=== PATIENT | male | born 1930 | race Caucasian/White ===

== ENCOUNTER → 2016-05-02 13:31 | Outpatient (CLI) | payer MEDICARE, OTHER ==
[2015-12-27 05:51] VITALS: BMI 25.3
[~2016-05-02 13:31] MED LIST: BAYER CHEWABLE81 MG PO; COZAAR100 MG PO; HYDROCODONE-APA1 TAB PO; NORVASC2.5 MG PO; PACERONE200 MG PO; PERCOCET 10/3251 TA1 PO; PRADAXA150 MG PO; PRAVACHOL40 MG PO; SINEQUAN25 MG PO; SYNTHROID88 MCG PO; TENORMIN25 MG PO; VIAGRA100 MG PO; ZANTAC150 MG PO
== END | disposition home or self-care (01) ==
LOC: D.RT 04-25 14:00
DX: R06.02 Shortness of breath (principal)

== ENCOUNTER 2016-08-18 13:57 | Emergency (ER) | payer MEDICARE, OTHER ==
[2015-12-27 05:51] VITALS: BMI 25.3
== END 2016-08-18 15:00 | disposition left against medical advice (07) ==
LOC: D.ER 13:57
DX: S29.9XXA Unspecified injury of thorax, initial encounter (principal); X58.XXXA Exposure to other specified factors, initial encounter; Y93.89 Activity, other specified; Y92.89 Other specified places as the place of occurrence of the external cause

== ENCOUNTER 2016-09-15 13:32 | Emergency (ER) | payer MEDICARE, OTHER ==
[2015-12-27 05:51] VITALS: BMI 25.3
[2016-09-15 15:04] LABS: APPEARANCE CLEAR (CLEAR); BILIRUBIN NEGATIVE (NEGATIVE); COLOR YELLOW (YELLOW); GLUCOSE NEGATIVE (NEGATIVE); KETONE NEGATIVE (NEGATIVE); LEUKOCYTE ESTERASE NEGATIVE (NEGATIVE); NITRITE NEGATIVE (NEGATIVE); PROTEIN NEGATIVE (NEGATIVE); UROBILINOGEN NORMAL (NORMAL)
== END 2016-09-15 16:28 | disposition home or self-care (01) ==
LOC: D.ER 13:32
PROVIDERS: Emergency Medicine
DX: M54.30 Sciatica, unspecified side (principal); I25.10 Atherosclerotic heart disease of native coronary artery without angina pectoris; I10 Essential (primary) hypertension; E03.9 Hypothyroidism, unspecified

== ENCOUNTER 2016-09-29 08:00 | Outpatient (CLI) | payer MEDICARE, OTHER ==
[2015-12-27 05:51] VITALS: BMI 25.3
== END 2016-09-29 23:59 | disposition home or self-care (01) ==
LOC: D.MRI 08:00
DX: M54.16 Radiculopathy, lumbar region (principal)

== ENCOUNTER 2016-10-20 13:41 | Day surgery (SDC) | payer MEDICARE, OTHER ==
[2016-10-16 16:58] LABS: BASOPHILS 0.3 % (0-2); EOSINOPHILS 2.9 % (0-7); HEMATOCRIT 40.4 % (42.0-54.0); HEMOGLOBIN 13.7 g/dL (13.5-17.5); IMMATURE GRANULOCYTES 0.5 % (0-5); LYMPHOCYTES 23.6 % (15-50); MCH 32.9 pg (26.0-34.0); MCHC 33.9 g/dL (31.0-37.0); MCV 96.9 fL (80.0-100.0); MEAN PLATELET VOLUME 10.5 fL (7.4-10.4); MONOCYTES 10.3 % (2-11); NEUTROPHILS 62.4 % (40-80); RBC 4.17 10x6/uL (4.20-6.10); RDW 12.4 % (11.5-14.5); WBC 5.9 10x3/uL (4.8-10.8)
[2016-10-16 16:59] LABS: PLATELET COUNT 195 10x3/uL (130-400)
[2016-10-16 17:07] LABS: APPEARANCE CLEAR (CLEAR); BILIRUBIN NEGATIVE (NEGATIVE); COLOR YELLOW (YELLOW); GLUCOSE NEGATIVE (NEGATIVE); KETONE NEGATIVE (NEGATIVE); LEUKOCYTE ESTERASE NEGATIVE (NEGATIVE); NITRITE NEGATIVE (NEGATIVE); PROTEIN NEGATIVE (NEGATIVE); UROBILINOGEN NORMAL (NORMAL)
[2016-10-16 17:13] LABS: ANION GAP 11.9 mmol/L (8-16); CALCIUM 9.4 mg/dL (8.5-10.1); CARBON DIOXIDE 30.6 mmol/L (21.0-32.0); CREATININE - SERUM 1.1 mg/dL (0.6-1.3); POTASSIUM - SERUM 4.5 mmol/L (3.5-5.1)
[~2016-10-20] VITALS: Ht 185.4 cm; Wt 88.0 kg
[2016-10-20 06:46] VITALS: BP 182/74; Ht 185.4 cm; Wt 88.0 kg
--- NOTE | 2016-10-20 11:48 | NUR ---
1130 SERVED FULL LIQUID DIET. Jo WASHBURN R.N.
[~2016-10-20 13:41] MED LIST changes: +SYNTHROID100 MCG PO; -SYNTHROID88 MCG PO
--- NOTE | 2016-11-18 10:24 | OP ---
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 PROCEDURE: L3-L4 right laminotomy and foraminotomy with discectomy. SURGEON: Cynthia Heath MD ESTIMATED BLOOD LOSS: 50 cc. SUMMARY: The patient was taken to the operating room and after an adequate level of general anesthetic, was prepped and draped in the usual aseptic manner on a Bernard frame. An incision was made to the right of the spinous processes of L3 and L4 using a C-arm fluoroscope to position the incision. Dissection was carried out with Metzenbaum scissors down to the interlaminar space at L3-L4 and then a matrix operating channel was introduced using the C-arm fluoroscope to guide this placement. A 5-cm channel, 1.5 cm in diameter was used. Following this, the operating channel was attached to the flexible arm and the medial aspect of the facet joint at L3-L4 on the right was removed with a Midas-Bruno drill. The overlying lamina of L3 and L4 was partially removed on the right as well. The ligamentum flavum was split and removed. Dissection was carried out underneath the exiting nerve root and the herniated disc fragment was identified. An incision was made in the posterior longitudinal ligament and disc material was removed piecemeal thoroughly decompressing the spinal canal. A thorough inspection was then carried out with a ball-tipped blunt hook and no further disc material was discovered. Following this, the wound was irrigated with an antibiotic solution and the closure carried out with 2-0 Dexon on the fascia, 3-0 Dexon on the subcutaneous tissue and a subcuticular skin closure with 4-0 Vicryl. The skin was then covered with Dermabond glue to seal it. The patient tolerated the procedure well, was taken to recovery in stable condition. TRANSINT:[id number] Voice Confirmation ID: [id number] DOCUMENT ID: [id number] CYNTHIA HEATH MD at 1024 CC: [id number] DICTATION DATE: 11/10/16 155 ADULT NEUROLOGIST: 11/10/16 2209 [facility] 10/20/16 [address] [id number] [place] [address]
== END 2016-10-20 14:40 | disposition home or self-care (01) ==
LOC: D.OPS 13:41
PROVIDERS: Neurological Surgery
DX: M47.26 Other spondylosis with radiculopathy, lumbar region (principal); I25.10 Atherosclerotic heart disease of native coronary artery without angina pectoris; Z95.1 Presence of aortocoronary bypass graft; K21.9 Gastro-esophageal reflux disease without esophagitis; Z01.812 Encounter for preprocedural laboratory examination

== ENCOUNTER → 2016-10-21 | Emergency (ER) | payer MEDICARE, OTHER ==
[2016-10-20 06:46] VITALS: BMI 25.6
== END ==
LOC: D.ER 02:54
DX: R33.9 Retention of urine, unspecified (principal)

== ENCOUNTER → 2017-03-17 12:39 | Outpatient (CLI) | payer MEDICARE, OTHER ==
[2016-10-20 06:46] VITALS: BMI 25.6
== END | disposition home or self-care (01) ==
LOC: D.RT 03-11 10:00
DX: R06.02 Shortness of breath (principal)

== ENCOUNTER 2017-08-07 01:43 | Emergency (ER) | payer MEDICARE, OTHER ==
[2016-10-20 06:46] VITALS: BMI 25.6
[2017-08-07 02:23] LABS: BASOPHILS 0.2 % (0-2); EOSINOPHILS 2.3 % (0-7); HEMATOCRIT 37.9 % (42.0-54.0); HEMOGLOBIN 12.7 g/dL (13.5-17.5); IMMATURE GRANULOCYTES 0.2 % (0-5); LYMPHOCYTES 27.6 % (15-50); MCHC 33.5 g/dL (31.0-37.0); MCV 98.4 fL (80.0-100.0); MEAN PLATELET VOLUME 10.9 fL (7.4-10.4); MONOCYTES 9.8 % (2-11); NEUTROPHILS 59.9 % (40-80); PLATELET COUNT 151 10x3/uL (130-400); RBC 3.85 10x6/uL (4.20-6.10); RDW 12.1 % (11.5-14.5); WBC 5.7 10x3/uL (4.8-10.8)
[2017-08-07 02:24] LABS: APPEARANCE CLEAR (CLEAR); BILIRUBIN NEGATIVE (NEGATIVE); COLOR YELLOW (YELLOW); GLUCOSE NEGATIVE (NEGATIVE); KETONE NEGATIVE (NEGATIVE); NITRITE NEGATIVE (NEGATIVE); PROTEIN NEGATIVE (NEGATIVE); UROBILINOGEN NORMAL (NORMAL)
[2017-08-07 02:40] LABS: ALBUMIN 3.8 g/dL (3.4-5.0); BILIRUBIN - TOTAL 0.44 mg/dL (0.2-1.3); CREATININE - SERUM 1.4 mg/dL (0.6-1.3)
[2017-08-07 02:46] LABS: PROTEIN - SERUM 6.1 g/dL (6.4-8.2)
[2017-08-07 02:58] LABS: ANION GAP 12.1 mmol/L (8-16); CALCIUM 8.9 mg/dL (8.5-10.1); CARBON DIOXIDE 28.9 mmol/L (21.0-32.0)
== END 2017-08-07 03:12 | disposition home or self-care (01) ==
LOC: D.ER 01:43
PROVIDERS: Emergency Medicine
DX: R60.0 Localized edema (principal); N28.9 Disorder of kidney and ureter, unspecified; I25.10 Atherosclerotic heart disease of native coronary artery without angina pectoris; I10 Essential (primary) hypertension; R00.1 Bradycardia, unspecified; I44.0 Atrioventricular block, first degree; E03.9 Hypothyroidism, unspecified

== ENCOUNTER → 2018-01-25 13:19 | Outpatient (CLI) | payer MEDICARE, OTHER ==
[2016-10-20 06:46] VITALS: BMI 25.6
== END | disposition home or self-care (01) ==
LOC: D.RAD 13:19
DX: R05 Cough (principal)

== ENCOUNTER → 2018-02-17 13:04 | Outpatient (CLI) | payer MEDICARE, OTHER ==
[2016-10-20 06:46] VITALS: BMI 25.6
== END | disposition home or self-care (01) ==
LOC: D.RT 13:00
DX: R06.02 Shortness of breath (principal)

== ENCOUNTER 2018-07-15 11:41 | Outpatient (CLI) | payer MEDICARE, OTHER ==
[~2018-07-15] VITALS: Ht 185.4 cm; Wt 88.6 kg
--- NOTE | ~2018-07-15 | HEMODYNAMI ---
PATIENT:ROBERTO ZAVALA MEDICAL RECORD: [id number] : 32 LOCATION:DNANCY ADMISSION DATE: 07/15/18 Generatedon:07/15/201815:12 Patient name: ROBERTO ZAVALA Patient #: [id number] SSN: : 1930 Date of study: 07/15/2018 Page: Of Hemodynamic Procedure Report Patient Data Patient Demographics Procedure consent was obtained First Name: ROBERTO Gender: Male Last Name: LUCAS : 1930 [facility] Initial: J Age: 87 year(s) Patient #: [id number] Race: Unknown Additional ID: [id number] Contact details Address: [place] [address] State: [place] City: [place] Zip code: [address] Past Medical History Allergies Allergen Reaction Date Comments Reported Other allergy 07/15/2018 Compazine Admission Admission Data Admission Date: 07/15/2018 Admission Time: 11:41 Lab Results Lab Result Date: 07/15/2018 Lab Result Time: 12:26 Biochemistry Name Units Result Min Max BUN mg/dl 36 --(----)-* 7 18 Creatinine mg/dl 1.3 --(---*)-- 0.6 1.3 CBC Name Units Result Min Max Hematocrit % 36.2 *-(----)-- 42 54 Hemoglobin g/dl 12.3 *-(----)-- 13.5 17.5 Procedure Procedure Types Cath Procedure Diagnostic Procedure PPM/ICD PPM Dual Implant Sedation Charges Moderate Sedation up to 15 minutes Procedure Description Procedure Date Procedure Date: 07/15/2018 Procedure Start Time: 14:43 Procedure End Time: 15:10 Procedure Staff Name Function Adriel Dai MD Performing Physician Balaji Gallardo MD Assisting physician Fitz Cook RT Monitor Clement Nance RN Nurse Gretta Martinez RT Scrub Melia Hernandez RT Monitor Procedure Data Cath Procedure Fluoroscopy Diagnostic fluoroscopy Total fluoroscopy Time: 2.5 time: 2.5 min min Diagnostic fluoroscopy Total fluoroscopy dose: dose: 68.69 mGy 68.69 mGy Estimated blood loss: 10 ml Procedure Complications No complications Procedure Medications Medication Administration Route Dosage Oxygen etCO2 Nasal cannula 2 l/min Lidocaine 2% added to field 20 Ancef (1Gm/50ml NS) I.V.P.B 1 g Ancef Irrigation Topical 1 g (1gm/500ml NS) Fentanyl I.V. 50 mcg Versed I.V. 1 mg Versed I.V. 1 mg Fentanyl I.V. 50 mcg Versed I.V. 1 mg Fentanyl I.V. 25 mcg Versed I.V. 1 mg Hemodynamics Rest HGB: 12.3 (g/dl) Heart Rate: 72 (bpm) Snapshots Pre Cath Intra NCS Post Cath Vital Signs Time Heart Resp SPO2 etCO2 NIBP (mmHg) Rhythm Pain Sedation Rate (ipm) (%) (mmHg) Status Level (bpm) 14:17:33 80 18 96 19.5 169/85(148) NSR 0 (11) 10(A) , No pain 14:22:14 68 19 94 35.3 140/94(109) NSR 0 (11) 10(A) , No pain 14:26:36 71 13 96 34.6 152/77(122) NSR 0 (11) 10(A) , No pain 14:30:58 57 17 97 36.1 144/79(122) NSR 0 (11) 10(A) , No pain 14:35:20 64 16 96 37.6 145/80(123) NSR 0 (11) 10(A) , No pain 14:39:47 66 12 96 34.6 137/69(98) NSR 0 (11) 10(A) , No pain 14:44:09 116 17 93 29.3 144/74(105) NSR 0 (11) 9(A) , No pain 14:48:35 66 20 95 0 143/69(117) NSR 0 (11) 9(A) , No pain 14:52:57 66 22 94 0.7 138/73(102) NSR 0 (11) 9(A) , No pain 14:57:15 60 23 96 28.6 136/80(121) Paced 0 (11) 9(A) , No pain 15:01:38 65 21 98 32.3 147/78(121) Paced 0 (11) 10(A) , No pain 15:05:58 62 16 98 30.8 143/76(117) Paced 0 (11) 10(A) , No pain 15:10:20 74 14 98 27 152/73(112) Paced 0 (11) 10(A) , No pain Medications Time Medication Route Dose Verified Delivered Reason Notes Effectiv eness by by 14:14:27 Ancef I.V.P.B 1 g Adriel Buffie used for (1Gm/50ml Suhas Nance polisher and sander NS) 14:26:11 Oxygen etCO2 2 Adriel Diorie used for Nasal l/min Suhas Nance polisher and sander cannula 14:26:18 Lidocaine added 20ml Adriel Carpio for local 2% to vial St Kiran Gallardo MD anesthetic field 14:26:34 Ancef Topical 1 g Adriel Diorie used for Irrigation Suhas Nance polisher and sander (1gm/500ml NS) 14:40:40 Fentanyl I.V. 50 Adriel Diorie for mcg Suhas Nance RN sedation 14:40:48 Versed I.V. 1 mg [facility] for [facility] sedation 14:44:46 Versed I.V. 1 mg [facility]iorie for [facility] RN sedation 14:44:51 Fentanyl I.V. 50 Adriel Diorie for [facility] Suhas Nance RN sedation 14:50:11 Versed I.V. 1 mg Adriel Diorie for Suhas Nance RN sedation 14:50:15 Fentanyl I.V. 25 Adriel Buffie for [facility] Suhas Nance RN sedation 14:54:18 Versed I.V. 1 mg Adriel Diorie for [facility] RN sedation Procedure Log Time Note 13:58:47 Time tracking: Regular hours (M-F 7:00 - 5:00) 13:58:50 Plan of Care:Hemodynamics will remain stable., Cardiac rhythm will remain stable., Comfort level will be maintained., Respiratory function will remain adequate., Patient/ family verbilizes understanding of procedure., Procedure tolerated without complication., Recovers from procedure without complications.. 13:58:54 Clement Nance RN sent for patient. Start room use. 14:08:47 Patient received from Pre/Post Procedure Room to [facility] 3 Alert and oriented. Tansferred to table in Supine position. 14:08:48 Warm blankets applied, and deepika hugger turned on for patient comfort. 14:08:49 Correct patient and procedure confirmed by team. 14:08:50 Signed procedure consent form obtained from patient. 14:08:51 ECG and BP/O2 sat monitors applied to patient. 14:08:55 Pre-procedure instructions explained to patient. 14:08:55 Pre-op teaching completed and patient verbalized understanding. 14:09:08 H&P Date Dictated: 07/06/2018 Within 30 days and on chart., H&P Addendum completed by physician on day of procedure. (MUST COMPLETE FOR ALL OUTPATIENTS). 14:09:11 Family in waiting room. 14:09:13 Patient NPO since Breakfast. 14:09:27 Patient allergic to Other allergyCompazine 14:09:28 Is the patient allergic to Iodine/contrast media? No. 14:09:30 Is patient on blood thinner?Yes 14:14:27 Ancef (1Gm/50ml NS) 1 g I.V.P.B was administered by Clement Nance RN; used for procedure; 14:16:11 Vital chart was started 14:21:05 Baseline sample Acquired. 14:21:12 Rhythm: atrial fibrillation 14:21:14 Full Disclosure recording started 14:21:18 Patient diabetic? No. 14:21:21 Previous problem with sedation/anesthesia? No ? 14:21:21 Snore? No 14:21:22 Sleep apnea? No 14:21:23 Deviated septum? No 14:21:23 Opens mouth fully? Yes 14:21:24 Sticks out tongue? Yes 14:21:25 Airway obstruction? No ? 14:21:26 Dentures? No ? 14:21:29 Patient pain scale 0/10 ?. 14:21:33 IV patent on arrival in left forearm with 0.9% NaCl at [facility]. 14:23:00 Lab Result : BUN 36 mg/dl 14:23:00 Lab Result : Creatinine 1.3 mg/dl 14:23:00 Lab Result : Hematocrit 36.2 % 14:23:00 Lab Result : Hemoglobin 12.3 g/dl 14:23:02 Lab results completed and on chart. 14:23:11 Left chest area was prepped with chlora-prep and draped in sterile fashion 14:23:12 Alarms reviewed by Bob Sapp 14:23:13 Sharps counted by scrub and verified by R.N. 14:23:22 Medtronic energy conservation representative winnie apple present for procedure. 14:23:33 Pre sharps counted by scrub and verified by RN: Sutures: 7; Sponges: 5; Stick needles: 2; Skin needles: 2; Blade: 1; Cautery: 1 14:23:35 Grounding pad site Left thigh. 14:23:36 Grounding pad site free from injury. 14:23:49 Use device set MARSHALL PPM 14:24:38 Medtronic Advisa MRI PPM Dual Generator [id number] opened to sterile field. 14:24:51 Medtronic 4574-53 PPM Lead opened to sterile field. 14:25:01 Medtronic 4074-58 PPM Lead opened to sterile field. 14:25:04 Immobilizer Large opened to sterile field. 14:25:06 Cautery Pushbutton Pencil opened to sterile field. 14:25:11 2-0 Ticron Multipack ([id number]) opened to sterile field. 14:25:11 3-0 Vicryl Single Pack [id number] opened to sterile field. 14:25:13 5-0 Monocryl PS2 [id number] opened to sterile field. 14:25:16 Mepilex Dressing ([id number]) opened to sterile field. 14:25:18 Cautery Tip Skull Chopper opened to sterile field. 14:26:11 Oxygen 2 l/min etCO2 Nasal cannula was administered by Clement Nance RN; used for procedure; 14:26:18 Lidocaine 2% 20ml vial added to field was administered by Balaji Gallardo MD; for local anesthetic; 14:26:34 Ancef Irrigation (1gm/500ml NS) 1 g Topical was administered by Clement Nance RN; used for procedure; 14:38:18 Physician arrived 14:38:19 --------ALL STOP TIME OUT------ 14:38:21 Final Timeout: patient, procedure, and site verified with staff and physician. All members of the team are in agreement. 14:38:27 Left chest site verified by team. 14:38:44 Fire Safety Assessment: A--An alcohol-based skin anteseptic being used preoperatively., B--The operative or invasive procedure is being performed above the xiphoid process or in the oropharynx., C--Open oxygen or nitrous oxide is being used. 14:38:47 Physical assessment completed. ASA score P 2 - A patient with mild systemic disease as per Adriel Dai MD. 14:38:50 Sedation plan: IV Moderate Sedation Medication:Versed, Fentanyl 14:40:40 Fentanyl 50 mcg I.V. was administered by Clement Nance RN; for sedation; 14:40:48 Versed 1 mg I.V. was administered by Clement aNnce RN; for sedation; 14:41:47 Procedure started. 14:43:44 Lidocaine 2% was administered to left subclavicular area by Balaji Gallardo MD . 14:43:51 Incision made to left subclavicular area. 14:43:53 Generator pocket made/opened. 14:44:46 Versed 1 mg I.V. was administered by Clement Nance RN; for sedation; 14:44:51 Fentanyl 50 mcg I.V. was administered by Clement Nance RN; for sedation; 14:48:55 Left subclavian vein accessed with 7Fr Peel Away Sheath. 14:49:16 Left subclavian vein accessed with 7Fr Peel Away Sheath. 14:49:18 Ventricular lead inserted and advanced. 14:49:19 Atrial lead inserted and advanced. 14:50:11 Versed 1 mg I.V. was administered by Clement Nance RN; for sedation; 14:50:15 Fentanyl 25 mcg I.V. was administered by Clement Nance RN; for sedation; 14:54:18 Versed 1 mg I.V. was administered by Clement Nance RN; for sedation; 14:55:18 Ventricular lead positioned. 14:55:26 Ventricular lead tested. 14:56:08 Peel-a-way sheath was split and removed. 14:56:51 Atrial lead positioned. 14:56:53 Atrial lead tested. 14:56:54 Peel-a-way sheath was split and removed. 14:56:59 Ventricular lead attachment was completed with 2-0 ticron. 14:57:06 Generator was sutured in place with 2-0 vicryl. 14:57:07 Ventricular lead attachment was completed with 2-0 ticron. 14:58:00 Device pocket was irrigated with Ancef. 14:58:37 Subcutaneous closure was completed with 3-0 vicryl. 14:59:46 Parameters-- Generator: Mode: DDDR. Lower Rate: 60bpm. Upper Rate: 120bpm. 15:00:10 Parameters--Ventricular P/R Wave: 6.9mV. Current: 0.4mA; Threshold: 0.3V; Impedence: 960OHMS. 15:00:28 Parameters--Atrial P/R Wave: 0.1mV. Current: AFmA; Threshold: AFV; Impedence: 461OHMS. 15:00:34 Skin closure was completed with 5-0 monocryl. 15:04:47 Lt Chest incision was dressed with Mepilex dressing. 15:08:52 Procedure ended.(Physican Out) 15:09:01 Fluoroscopy time 02.50 minutes. 15:09:16 Fluoroscopy dose: 68.69 mGy 15:09:16 Flurop Dose total: 68.69 15:09:31 Post procedure rhythm: paced 15:09:34 Estimated blood loss: 10 ml 15:09:35 Post procedure instruction explained to patient.Patient verbalizes understanding. 15:09:35 Patient needs reinforcement of post procedure teaching. 15:10:08 Procedure type changed to Cath procedure, Diagnostic procedure, PPM/ICD, PPM Dual Implant, Sedation Charges, Moderate Sedation up to 15 minutes 15:10:32 Procedure and supply charges have been captured, reviewed, submitted and are correct. 15:10:35 Procedure Complication : No complications 15:10:38 Vital chart was stopped 15:10:38 See physician's report for complete and final results. 15:10:40 Report given to PCU. 15:10:43 Patient transfered to PCU with Bed. 15:10:44 Procedure ended. 15:10:44 Full Disclosure recording stopped 15:10:49 End room use (Document Last) Device Usage Item Name Manufacture Quantity Catalog Hospital Part Current Minimal Lot# / Number Charge Number Stock Stock Serial# Code Medtronic Medtronic 1 [id number] [id number] 5 [id number] Advisa MRI 2019-11-15 PPM Dual Generator [id number] Medtronic Medtronic 1 4574-53 703535 170185 [id number] 5 [id number] 45753 PPM 2019-06-26 Lead Medtronic Medtronic 1 4074-58 376265 108954 459242 5 [id number] 4074-58 PPM 2019-12-16 Lead Immobilizer Cardinal 1 [id number] 522389 249179 710412 5 Large Health Cautery Microtek 1 [id number] 215696 30344 224351 5 [employer] Pencil 2-0 Ticron Ethicon 6 [id number] 806498 57883 248791 5 Multipack ([id number]) 3-0 Vicryl Ethicon 1 [id number] 448340 446488 917522 5 Single Pack [id number] 5-0 Monocryl Ethicon 1 Y495G 523817 865504 738523 5 PS2 Y495G Mepilex Cardinal 1 044090 511826 157504 387162 5 Dressing Health (678398) Cautery Tip Microtek 1 [id number] 738891 566211 534008 5 [employer] Signature Audit [place] Stage Time Signature Unsigned Intra-Procedure 07/15/2018 Melia Hernandez 3:12:10 PM RT(R) Signatures Monitor : Fitz Cook RT Signature : Date : Time : Monitor : Melia Hernandez Signature : RT Date : Time : [place] [id number] [facility] [place] [address]
[2018-07-15] MEDS ORDERED: VIAGRA100 MG PO (12:05)
[2018-07-15] MEDS ORDERED: SINEQUAN25 MG PO (12:06)
[2018-07-15] MEDS ORDERED: SYNTHROID112 MCG PO (12:07)
[2018-07-15 12:12] VITALS: BP 151/71; BMI 25.7
[2018-07-15 12:29] LABS: HEMATOCRIT 36.2 % (42.0-54.0); HEMOGLOBIN 12.3 g/dL (13.5-17.5); MCH 32.4 pg (26.0-34.0); MCV 95.3 fL (80.0-100.0); MEAN PLATELET VOLUME 11.2 fL (7.4-10.4); RBC 3.8 10x6/uL (4.20-6.10); WBC 5.4 10x3/uL (4.8-10.8)
[2018-07-15 12:49] LABS: ANION GAP 12.7 mmol/L (8-16); CALCIUM 9.2 mg/dL (8.5-10.1); CARBON DIOXIDE 26.5 mmol/L (21.0-32.0); CREATININE - SERUM 1.3 mg/dL (0.6-1.3); POTASSIUM - SERUM 4.2 mmol/L (3.5-5.1)
[2018-07-15 13:01] LABS: APTT 28.8 SECONDS (22.8-39.4); INR 1.04 (0.85-1.17); PROTIME 13.5 SECONDS (11.6-15.0)
--- NOTE | 2018-07-15 15:31 | NUR ---
1530-RECEIVED VIA BED TO ROOM POST PACEMAKER PLACEMENT TO LEFT UPPER CHEST WALL. SLING IS IN USE TO LEFT ARM, RADIAL PULSE PRESENT. DRESSING SEEN OF BROWN MEPILEX TO LEFT CHEST WALL. IV IS SEEN LEFT FOREARM. WILL ADMIT. PATIENT DENIES PAIN AT THIS TIME.
[2018-07-15 15:38] VITALS: BP 76/48; Ht 185.4 cm; Wt 88.6 kg
[2018-07-15 16:12] VITALS: BP 78/51
--- NOTE | 2018-07-15 16:35 | NUR ---
PATIENT IS TRYING TO STAND UP USING HIS LEFT ARM FOR SUPPORT TO VOID IN URINAL. I INSTRUCTED HIM NUMEROUS TIMES NOT TO USE HIS LEFT ARM R/T WIRES THAT MIGHT GET MOVED.
--- NOTE | 2018-07-15 17:46 | NUR ---
ASSSITED PATIENT TO RESTROOM TO VOIDS. VOIDS IN TOLIET. ASSSITED BACK TO BED AND ASKED AGAIN TO PLEASE NOT USE IS LEFT ARM, SLING IN USE.
--- NOTE | 2018-07-15 19:57 | NUR ---
PT SITTING UP IN BED ALERT AND ORIENTED. RR EVEN AND UNLABORED. GIRLFRIEND AT BEDSIDE. NO S/S OF DISTRESS. PT WEARING ARM SLING. BED LOW CALL LIGHT WITHIN REACH. WILL CONTINUE TO MONITOR.
[2018-07-15 20:00] VITALS: BP 127/67
--- NOTE | 2018-07-15 20:17 | NUR ---
ASSISTED PT UP INTO BATHEROOM TO VOID. PT BACK IN BED. BED LOW CALL LIGHT WITHIN REACH. WILL CONTINUE TO MONITOR.
--- NOTE | 2018-07-15 22:43 | NUR ---
ASSISTED PT TO BATHROOM. PT TOLERATED WELL. BED LOW CALL LIGHT WITHIN REACH. WILL CONTINUE TO MONITOR.
--- NOTE | 2018-07-16 02:05 | NUR ---
PT RESTING IN BED WIRH EYES CLOSED. RR EVEN AND UNLABORED. PT RUNNING 73 PAACED ON TELEMETRY PER MARKET RESEARCH INTERVIEWER. LEFT ARM SLING IN PLACE. NO S/S OF DISTRESS. WILL CONTINUE TO MONITOR.
--- NOTE | 2018-07-16 03:15 | NUR ---
I have reviewed this patient and I concur with the Shift Assessment completed by the Licensed Practical Nurse today this shift.
[2018-07-16 04:00] VITALS: BP 106/50
--- NOTE | 2018-07-16 04:24 | NUR ---
PT STANDING AT SIDE OF BED USING URINAL TO VOID. PT COMPLAINS OF 5/10 PAIN IN LEFT SHOULDER. WILL CONTINUE TO MONITOR.
--- NOTE | 2018-07-16 07:41 | NUR ---
REPORT RECEIVED. WILL CONTINUE WITH POC. PT CURRENTLY LYING SEMI FOWLERS. CALL LIGHT W/I REACH. PT IS RESTING AT THE MOMENT. NO S/S OF DISTRESS NOTED. RIGHT ARM IS IN A SLING FOR POST PACEMAKER PLACEMAKER. RR EVEN AND UNLABORED ON RA. NS INFUSING @50ML/HR VIA L.FOR PIV . WILL CTM.
[2018-07-16 08:25] VITALS: BP 150/56
--- NOTE | 2018-07-16 10:00 | NUR ---
I have reviewed this patient and I concur with the Shift Assessment completed by the Licensed Practical Nurse today this shift.
--- NOTE | 2018-07-16 10:56 | NUR ---
PT DISCHARGED HOME VIA WHEELCHAIR WITH FAMILY. PACEMAKER INSTRUCTIONS AND PACKET GIVEN. PIV REMOVED WITH CATHETER TIP INTACT. TELEMETRY REMOVED AND RETURNED. PT SIGNED PROPER DISCHARGE INSTRUCTION AND REMOVED ALL VALUABLES FROM THE ROOM.
--- NOTE | 2018-07-20 08:16 | OP ---
PATIENT NAME: ROBERTO ZAVALA MEDICAL RECORD: [id number] :31 LOCATION:D.CAT ADMISSION DATE: SURGEON: LEEANN OLIVARES MD DATE OF OPERATION: 07/15/2018 PREOPERATIVE DIAGNOSES: 1. Atrial fibrillation. 2. Coronary artery disease. POSTOPERATIVE DIAGNOSES: 1. Atrial fibrillation. 2. Coronary artery disease. PROCEDURE IN DETAIL: 1. Left subclavian vein dual lead pacemaker placement. 2. Fluoroscopic interpretation. SURGEON: Leeann Olivares MD CO-SURGEON: Adriel Otoole MD REPORT OF OPERATION: The patient's left chest was prepped and draped in sterile fashion. A 20 mL of 1% lidocaine with epinephrine was infused into the surrounding tissues. A transverse incision was made overlying the left superior lateral chest and a subcutaneous pouch was made over the pectoral fascia. The needles were used times 2 to cannulate the left subclavian vein and guidewires were advanced with ease. Fluoro was used to note that the wires were in good position in the venous system. The dilator trocar device was replaced over the wires and the wires and dilators were removed. The leads were advanced through the trocars and resting in good position in the vena cava. At this point, Dr. Otoole positioned the leads appropriately in the atrium and ventricle. Once the leads were noted to be functioning appropriately, then the trocars were removed. The leads were sutured into place with 0 Ti-Cron. We then affixed the leads to the pacemaker and placed the pacemaker and leads in the subcutaneous pouch. The pacemaker was sutured to the pectoral fascia using a single interrupted 0 Ti-Cron. The wound was irrigated out with antibiotic solution. We then reapproximated the subcutaneous tissues with interrupted 3-0 Vicryls and the skin was closed with running subcutaneous 5-0 Monocryl. COMPLICATIONS: None. CONDITION: Stable. ANESTHESIA: Local MAC. BLOOD LOSS: Minimal. TRANSINT:[id number] Voice Confirmation ID: [id number] DOCUMENT ID: [id number] OPERATIVE REPORT [id number] ROBERTO ZAVALA LEEANN OLIVARES MD at 0816 CC: [id number] DICTATION DATE: 07/15/18 1509 SCRUM PRODUCT OWNER: 07/15/18 1603 DEP CLI 07/16/18 [facility] [address] [place] [address]
--- NOTE | 2018-07-20 14:26 | OP ---
PATIENT NAME: ROBERTO ZAVALA MEDICAL RECORD: [id number] :31 LOCATION:D.CAT ADMISSION DATE: SURGEON: TONYA BLAKE MD DATE OF OPERATION: 07/15/2018 PROCEDURE: Lead portion of permanent pacemaker placement. INDICATION: Sick sinus syndrome with PAF and pauses. SURGEON: Balaji Gallardo MD DESCRIPTION OF PROCEDURE: After left subclavian was cannulated via modified Seldinger technique via Dr. Gallardo, first, under fluoroscopic guidance, I placed the RV lead in the RV apex without difficulty. After adequate R waves and thresholds were obtained, again under fluoroscopic guidance, I then placed the right atrial lead in right atrial appendage without difficulty. After adequate P waves and thresholds were obtained, the leads were attached to appropriate poles of the generator and the pocket was closed via Dr. Gallardo. IMPRESSION: Successful lead portion of permanent pacemaker placement on [facility]. ESTIMATED BLOOD LOSS: Minimal. DISPOSITION: To the floor, stable. TRANSINT:[id number] Voice Confirmation ID: [id number] DOCUMENT ID: [id number] TONYA BLAKE MD at 1426 CC: [id number] DICTATION DATE: 07/15/18 1507 BEE TENDER: 07/15/18 1557 DEP CLI 07/16/18 [place] [id number] [place] [address]
== END 2018-07-16 10:57 | disposition home or self-care (01) ==
LOC: D.CATH 11:41 → D.M2 15:36 → D.CATH 07-16 10:57
PROVIDERS: ATTEND Internal Medicine Interventional Cardiology
DX: I49.5 Sick sinus syndrome (principal); I25.10 Atherosclerotic heart disease of native coronary artery without angina pectoris; Z01.812 Encounter for preprocedural laboratory examination

== ENCOUNTER 2018-09-21 15:58 | Emergency (ER) | payer MEDICARE, OTHER ==
[~2018-09-21] VITALS: Ht 185.4 cm; Wt 86.8 kg
[~2018-09-21 15:58] MED LIST changes: +SYNTHROID112 MCG PO
[2018-09-21 16:05] VITALS: Ht 185.4 cm; Wt 86.8 kg
[2018-09-21] MEDS ORDERED: XARELTO20 MG PO (16:06)
[2018-09-21 16:50] VITALS: BP 146/62
== END 2018-09-21 16:50 | disposition home or self-care (01) ==
LOC: D.ER 15:58
DX: S41.111A Laceration without foreign body of right upper arm, initial encounter (principal); W26.8XXA Contact with other sharp object(s), not elsewhere classified, initial encounter; Y93.89 Activity, other specified; Y92.019 Unspecified place in single-family (private) house as the place of occurrence of the external cause

== ENCOUNTER 2018-09-24 11:35 | Emergency (ER) | payer MEDICARE, OTHER ==
[~2018-09-24 11:35] MED LIST changes: +XARELTO20 MG PO
[2018-09-24 11:37] VITALS: BMI 25.7
[2018-09-24 12:18] LABS: BASOPHILS 0.2 % (0-2); EOSINOPHILS 1.7 % (0-7); HEMATOCRIT 35.5 % (42.0-54.0); HEMOGLOBIN 11.5 g/dL (13.5-17.5); IMMATURE GRANULOCYTES 0.2 % (0-5); LYMPHOCYTES 23.8 % (15-50); MCH 30.3 pg (26.0-34.0); MCHC 32.4 g/dL (31.0-37.0); MCV 93.7 fL (80.0-100.0); MEAN PLATELET VOLUME 11.1 fL (7.4-10.4); MONOCYTES 6.1 % (2-11); PLATELET COUNT 169 10x3/uL (130-400); RBC 3.79 10x6/uL (4.20-6.10); RDW 13.3 % (11.5-14.5); WBC 5.4 10x3/uL (4.8-10.8)
[2018-09-24 12:25] LABS: ALBUMIN 3.8 g/dL (3.4-5.0); ANION GAP 11.8 mmol/L (8-16); BILIRUBIN - TOTAL 0.92 mg/dL (0.2-1.3); CALCIUM 9.2 mg/dL (8.5-10.1); CARBON DIOXIDE 28.6 mmol/L (21.0-32.0); CREATININE - SERUM 1.2 mg/dL (0.6-1.3); POTASSIUM - SERUM 4.4 mmol/L (3.5-5.1); PROTEIN - SERUM 7.3 g/dL (6.4-8.2)
[2018-09-24 12:31] LABS: INR 1.91 (0.85-1.17); PROTIME 21.2 SECONDS (11.6-15.0)
[2018-09-24 13:34] VITALS: BP 162/80
== END 2018-09-24 13:35 | disposition home or self-care (01) ==
LOC: D.ER 11:35
PROVIDERS: Emergency Medicine
DX: S40.811A Abrasion of right upper arm, initial encounter (principal); X58.XXXA Exposure to other specified factors, initial encounter; Y93.89 Activity, other specified; Y92.89 Other specified places as the place of occurrence of the external cause; Z79.01 Long term (current) use of anticoagulants

== ENCOUNTER 2018-12-31 23:57 | Inpatient (IN) | payer MEDICARE, OTHER ==
[~2018-12-31] VITALS: Ht 185.4 cm; Wt 88.6 kg
[2019-01-01] VITALS (9 sets, daily range): BP systolic 112–151; BP diastolic 44–79; Ht 185.4 cm; Wt 88.6 kg
[2019-01-01] MEDS ORDERED: NORVASC5 MG PO (00:13)
[2019-01-01 00:36] LABS: BASOPHILS 0.1 % (0-2); EOSINOPHILS 1.5 % (0-7); HEMATOCRIT 32.7 % (42.0-54.0); HEMOGLOBIN 10.7 g/dL (13.5-17.5); IMMATURE GRANULOCYTES 0.4 % (0-5); MCH 30.7 pg (26.0-34.0); MCHC 32.7 g/dL (31.0-37.0); MEAN PLATELET VOLUME 11.2 fL (7.4-10.4); MONOCYTES 9.6 % (2-11); NEUTROPHILS 76.4 % (40-80); PLATELET COUNT 147 10x3/uL (130-400); RBC 3.48 10x6/uL (4.20-6.10); RDW 14.3 % (11.5-14.5); WBC 7.3 10x3/uL (4.8-10.8)
[2019-01-01 00:47] LABS: INR 3.34 (0.85-1.17)
[2019-01-01 00:51] LABS: ALBUMIN 3.6 g/dL (3.4-5.0); ALKALINE PHOSPHATASE 150 U/L (46-116); ALT (SGPT) 33 U/L (10-68); BILIRUBIN - TOTAL 0.62 mg/dL (0.2-1.3); CALC OSMOLALITY 285 mosm/kg (275-300); CALCIUM 8.4 mg/dL (8.5-10.1); CARBON DIOXIDE 28.1 mmol/L (21.0-32.0); CHLORIDE - SERUM 105 mmol/L (98-107); CREATININE - SERUM 1.5 mg/dL (0.6-1.3); GLUCOSE 112 mg/dL (74-106); POTASSIUM - SERUM 4.6 mmol/L (3.5-5.1); PROTEIN - SERUM 6.7 g/dL (6.4-8.2); SODIUM 139 mmol/L (136-145); UREA NITROGEN 31 mg/dL (7-18); eGFR NON AFRICAN AMERICAN 47 mL/min (90-120)
[2019-01-01 01:07] LABS: CKMB 1.7 U/L (0.0-3.6); CREATINE KINASE 102 UL (21-232); PRO BNP 2543 pg/mL (0-450); TROPONIN-I 0.017 ng/mL (0.000-0.060)
[2019-01-01 12:53] LABS: % SATURATION 7 % (15-55); IRON 25 ug/dl (35-150); TOTAL IRON BIND CAPACITY 322 ug/dl (260-445); UNSAT IRON BIND CAPACITY 297 ug/dl (150-375)
--- NOTE | 2019-01-01 13:57 | NUR ---
ECHO CARDIOGRAM DONE AT BS.
--- NOTE | 2019-01-01 14:19 | NUR ---
URINE SPECIMEN COLLECTED AND TAKEN TO LAB. WILL MONITOR.
[2019-01-01 15:05] LABS: APPEARANCE CLEAR (CLEAR); BILIRUBIN NEGATIVE (NEGATIVE); COLOR YELLOW (YELLOW); GLUCOSE NEGATIVE (NEGATIVE); KETONE NEGATIVE (NEGATIVE); NITRITE NEGATIVE (NEGATIVE); PROTEIN NEGATIVE (NEGATIVE); UROBILINOGEN NORMAL (NORMAL)
--- NOTE | 2019-01-01 19:32 | NUR ---
BEDSIDE SHIFT REPORT COMPLETED AND PT RESTING IN BED WITH MULTIPLE FAMILY PRESENT. NO DISTRESS. CALL LIGHT IN REACH. CPOC.
--- NOTE | 2019-01-01 21:23 | NUR ---
BEDTIME MEDS HAVE BEEN GIVEN AND PT IS RESTING IN ROOM. STATES HE IS ALREADY BEGINNING TO FEEL BETTER.
[2019-01-02] VITALS: BP 111/48
[2019-01-02 05:00] LABS: BASOPHILS 0.3 % (0-2); EOSINOPHILS 3.6 % (0-7); HEMATOCRIT 30.8 % (42.0-54.0); HEMOGLOBIN 9.9 g/dL (13.5-17.5); IMMATURE GRANULOCYTES 0.3 % (0-5); LYMPHOCYTES 19.4 % (15-50); MCH 30.3 pg (26.0-34.0); MCHC 32.1 g/dL (31.0-37.0); MCV 94.2 fL (80.0-100.0); MEAN PLATELET VOLUME 11.1 fL (7.4-10.4); MONOCYTES 12.6 % (2-11); NEUTROPHILS 63.8 % (40-80); PLATELET COUNT 145 10x3/uL (130-400); RBC 3.27 10x6/uL (4.20-6.10); RDW 14.6 % (11.5-14.5); WBC 6.5 10x3/uL (4.8-10.8)
[2019-01-02 05:09] LABS: PROTIME 26.7 SECONDS (11.6-15.0)
[2019-01-02 05:10] LABS: ANION GAP 8.3 mmol/L (8-16); CALCIUM 8.1 mg/dL (8.5-10.1); CARBON DIOXIDE 31.3 mmol/L (21.0-32.0)
[2019-01-02 05:12] LABS: INR 2.55 (0.85-1.17)
[2019-01-02 05:16] LABS: CREATININE - SERUM 1.9 mg/dL (0.6-1.3); POTASSIUM - SERUM 3.6 mmol/L (3.5-5.1)
--- NOTE | 2019-01-02 05:33 | NUR ---
NO CHANGE FROM INITIAL SHIFT ASSESSMENT. HAS RESTED WITH NO DISTRESS. GIRLFRIEND AT BEDSIDE. AM MEDICATIONS GIVEN.
[2019-01-02 07:30] VITALS: BP 126/57
--- NOTE | 2019-01-02 10:00 | NUR ---
TELEMETRY PACED. UP IN CHAIR WITH CALL LIGHT IN REACH. WILL CONT. PLAN OF CARE.
[2019-01-02 11:30] VITALS: BP 156/63
[2019-01-02 15:30] VITALS: BP 133/70
--- NOTE | 2019-01-02 16:57 | NUR ---
UP TO SHOWER WITH INSTRUMENT MAN ASSIST.
[2019-01-02 20:00] VITALS: BP 121/51
--- NOTE | 2019-01-02 20:10 | NUR ---
INITIAL ROUNDS AND ASSESSMENT COMPLETED. PT AD MAJOR IN ROOM. ALERT/ORIENTED. NO LONGER HAS IV ACCESSS. NONLABORED RESPIRATIONS ON ROOM AIR. 54/SB PER TELEMETRY. CPOC. CALL LIGHT IN REACH.
--- NOTE | 2019-01-02 21:27 | NUR ---
BEDTIME MEDS GIVEN. PT RESTING. SAYS HE IS GOING HOME IN AM AND HE FEELS SO MUCH BETTER THAN WHEN HE GOT HERE. CPOC.
[2019-01-03] VITALS: BP 142/64
[2019-01-03 04:30] VITALS: BP 142/68
[2019-01-03 04:40] LABS: BASOPHILS 0.2 % (0-2); EOSINOPHILS 4.5 % (0-7); HEMATOCRIT 32.8 % (42.0-54.0); HEMOGLOBIN 10.6 g/dL (13.5-17.5); IMMATURE GRANULOCYTES 0.3 % (0-5); LYMPHOCYTES 25.2 % (15-50); MCH 30.5 pg (26.0-34.0); MCHC 32.3 g/dL (31.0-37.0); MCV 94.3 fL (80.0-100.0); MEAN PLATELET VOLUME 11.4 fL (7.4-10.4); MONOCYTES 11.4 % (2-11); NEUTROPHILS 58.4 % (40-80); PLATELET COUNT 166 10x3/uL (130-400); RBC 3.48 10x6/uL (4.20-6.10); RDW 14.4 % (11.5-14.5); WBC 5.8 10x3/uL (4.8-10.8)
[2019-01-03 04:58] LABS: ANION GAP 10.9 mmol/L (8-16); CREATININE - SERUM 1.7 mg/dL (0.6-1.3); POTASSIUM - SERUM 3.9 mmol/L (3.5-5.1)
--- NOTE | 2019-01-03 06:39 | NUR ---
NO CHANGE FROM INITIAL SHIFT ASSESSMENT. TELLS NURSE HE IS GOING HOME TODAY. CAREGIVER/GIRLFRIEND AT BEDSIDE. CALL LIGHT IN REACH. CPOC.
--- NOTE | 2019-01-03 07:15 | NUR ---
RECEIVED PT IN BED EYES CLOSED RESP UNLABORED SKIN W/D COLOR WNL NAD NOTED WILL CONTINUE TO MONITOR
[2019-01-03 08:30] VITALS: BP 139/73
[2019-01-03 13:04] VITALS: BP 120/54
[2019-01-03] MEDS ORDERED: Bumex PO (14:02)
[2019-01-03] MEDS ORDERED: Aldactone PO (14:02)
[2019-01-03] MEDS ORDERED: ZITHROMAX250 MG PO (14:05)
[2019-01-03] MEDS ORDERED: ALDACTONE50 MG PO (14:07)
[2019-01-03] MEDS ORDERED: BUMETANIDE0.5 MG PO (14:08)
--- NOTE | 2019-01-03 14:35 | NUR ---
REVIEWED DISCHARGE INSTRUCTIONS WITH PT STATES UNDERSTANDING COPY GIVEN PT DISCHARGED IN STABLE CONDITION LEFT UNIT VIA W/C WITH ALL PERSONAL BELONGINGS
--- NOTE | 2019-01-03 16:33 | MORECARE ---
CASE MANAGEMENT DISCHARGE SUMMARY PATIENT: SRIDHAR ZAVALA UNIT: [id number] ADM DATE: 01/01/19 AGE: 88 : 31 SEX: M ROOM/BED: D.2116 AUTHOR: KERRY,DOC PHYSICIAN: REFERRING PHYSICIAN: NITO RICK MD DATE OF SERVICE: 01/03/19 Discharge Plan Patient Name: SRIDHAR ZAVALA Facility: [facility]:[place] : 1930 Planned Disposition: Home Anticipated Discharge Date: 01/03/19 Discharge Date: 01/03/2019 Expected LOS: 2 Initial Reviewer: [email or web address] Initial Review Date: 01/03/2019 Generated: 01/03/19 5:32 pm Comments DCP- Discharge Planning Updated by [id number]: Sridhar Castorena on 01/03/19 3:[address] Patient Name: SRIDHAR ZAVALA Admission Status: ER Accout number: [id number] Admission Date: 01-01-2019 : 1930 Admission Diagnosis: Attending: NITO RICK Current LOS: 2 Anticipated DC Date: 01-03-2019 Planned Disposition: Home Primary Insurance: MEDICARE A & B Discharge Planning Comments: CM MET WITH PT IN ROOM TO DISCUSS DISCHARGE PLANNING AND NEEDS. PT REPORTS LIVING AT HOME INDEPENDENTLY AND ALONE. PT HAS WALKER, WHEELCHAIR AND CANE. PT HAS NO MEDICAL EQUIPMENT PROVIDER PREFERNCE. PT HAS NO OUTSIDE SERVICES ASSISTING IN THE HOME. CM DISCUSSED AVAILABILITY OF HOME HEALTH, REHAB SERVICES AND MEDICAL EQUIPMENT. PT DENIES DISCHARGE NEEDS, REPORTS HIS FRIEND, ALMA, WILL PICK HIM UP FOR DISCHARGE HOME. IMPORTANT MESSAGE FROM MEDICARE PROVIDED AND EXPLAINED Ic Designer Custom: Sridhar Castorena DCPIA - Discharge Planning Initial Assessment Updated by [email or web address]: Sridhar Castorena on 01/03/19 4:28 pm * Is the patient Alert and Oriented? Yes * How many steps to enter\exit or inside your home? * PCP DR. MORALES * Pharmacy [facility] * Preadmission Environment Home Alone * ADLs Independent * Equipment Cane Walker Wheelchair * Other Equipment NO MEDICAL EQUIPMENT PROVIDER PREFERENCE * List name and contact numbers for known caregivers / representatives who currently or will assist patient after discharge: ALMA HARRIS, FRIEND, * Verbal permission to speak to the caregivers and representatives has been obtained from the patient. N/A * Community resources currently utilized None * Please name any agencies selected above. NONE * Additional services required to return to the preadmission environment? No * Can the patient safely return to the preadmission environment? Yes * Has this patient been hospitalized within the prior 30 days at any hospital? No Coverage Notice Reviewer: [id number] - Sridhar Castorena Notice Issued Date-Time: 01/03/2019 14:30 Notice Type: IM Discharge Notice Notice Delivered To: Patient Relationship to Patient: [employer] Wireless Manager Name: Delivery Method: HAND - Hand Delivered Neeru Days: Prior Verbal Notification: Recipient Understood Notice: Yes Recipient Signature: Yes Med Rec Note Co-signed by Attending: Coverage Notice Comment: Patient Name: SRIDHAR ZAVALA Page [id number] at 1633 All edits/amendments must be made on the electronic document DICTATION DATE: 01/03/19 163 BALE BREAKER OPERATOR: JEWELL 01/03/19 1632 RPT#: [id number] DC DATE:01/03/19 STATUS: DIS IN [facility] [address] [place] [address] END OF REPORT
--- NOTE | 2019-01-04 13:03 | EC ---
PATIENT:ROBERTO ZAVALA DATE OF SERVICE: 01/01/19 SEX: M MEDICAL RECORD: [id number] DATE OF : [birth year] LOCATION:D.M2 D.211 AGE OF PATIENT: 88 ADMISSION DATE: 01/01/19 REFERRING PHYSICIAN: INTERPRETING PHYSICIAN: TONYA BLAKE MD ECHOCARDIOGRAM REPORT ECHO CHARGES 4 ECHO COMPLETE Date: 01/01/19 CLINICAL DIAGNOSIS: CHF ECHOCARDIOGRAPHIC MEASUREMENTS (adult normal given) AC root (d.<3.7cm) 4.0 cm LV Septum d (<1.2 cm> 1.6 cm Valve Excursion 1.2 cm LV Septum (systole) 2.1 cm Left Atria (s.<4.0cm> 4.1 cm LVPW d(<1.2cm) 1.4 cm RV (d.<2.3cm) 3.2 cm LVPW (sytole) 2.1 cm LV diastole(<5.6CM) 6.3 cm MV E-F(>70mm/sec) cm LV systole 4.4 cm LVOT Diameter 2.3 cm MV exc.(>10mm) cm Est.ejection fraction (50-75%) % DOPPLER: LVIT cm/sec A cm/sec E 156 cm/sec LA cm/sec RVSP 51.4 mmHg LVOT 82.0 cm/sec AOP1/2T m/s Asc. Ao 200 cm/sec RVOT 48.0 cm/sec RA cm/sec PA 81.0 cm/sec AV Gradient Peak 16.0 mmHg AV Mean 7.9 mmHg AV Area 1.9 cm MV Gradient Peak 13.0 mmHg MV Mean 2.9 mmHg MV Area cm COMMENTS: Elementary Substitute Teacher: Jarad MULTANIOE Agricultural Research Director: 3 Dr. Otoole TAPE# PACS Pericardial Effusion N DATE OF SERVICE: 01/02/2019 Adequate 2D, color flow imaging, spectral Doppler, and M-Mode LVH is present. LV internal dimensions are dilated at 6.3 cm. LV wall motion is globally hypokinetic with reduced EF, estimated EF 30% to 35%. Aortic valve is sclerosed without evidence of stenosis by Doppler interrogation. Left atrium is minimally dilated at 4.1 cm. Mitral valve shows no prolapse. Moderate MR. Right-sided chambers are grossly normal. Moderate TR. ECHOCARDIOGRAM REPORT [id number] ROBERTO ZAVALA TRANSINT:[id number] Voice Confirmation ID: [id number] DOCUMENT ID: [id number] TONYA BLAKE MD at 1303 CC: [id number] DICTATION DATE: 01/02/19923 QUALITY LIAISON: 01/02/19 1255 DIS IN 01/03/19 [facility] [address] [place] [id number]
--- NOTE | 2019-01-04 13:03 | CN ---
PATIENT NAME:ROBERTO ZAVALA MEDICAL RECORD: [id number] : [birth year] LOCATION:[facility] D.2116 ADMIT DATE: 01/01/19 ACCOUNT: [id number] CONSULTING PHYSICIAN: TONYA BLAKE MD REFERRING PHYSICIAN: NITO RICK MD DATE OF CONSULTATION: 01/01/2019 HISTORY OF PRESENT ILLNESS: An 88-year-old gentleman with history of coronary artery disease, status post coronary artery bypass grafting. He has history of paroxysmal atrial fibrillation with sick sinus syndrome, bradyarrhythmias, most recently with permanent pacemaker placement. Has done pretty well, however, for the last week or so, has been having a symptomology consistent with volume overload, orthopnea, PND, nocturnal cough. No recent illness. No medication indiscretion by his 's report. We are asked to see him concerning his cardiovascular status. PAST MEDICAL HISTORY: Includes; 1. History of hypertension. 2. Hyperlipidemia. 3. Sick sinus syndrome, status post pacemaker placement. 4. Coronary artery disease as described above. 5. Hypothyroidism, on replacement. MEDICATIONS: Include Synthroid 112 mcg every day, doxepin 25 mg at bedtime, amlodipine 5 every day, pravastatin 40 every day, losartan 100 every day, atenolol 25 every day, amiodarone 200 every day, and Xarelto 20 every day. ALLERGIES: COMPAZINE, DOXYCYCLINE. SOCIAL HISTORY: Nonsmoker. Nondrinker. Easily takes care of all of his ADLs. Exercises easily 5 days a week. REVIEW OF SYSTEMS: The patient reports easy bruising but reports no swollen glands. The patient reports no fever, no night sweats, no significant weight gain, no significant weight loss. No significant exercise tolerance. The patient reports no dry eyes, no irritation, no vision change. Patient reports no difficulty hearing and no ear pain. Patient reports no frequent nose bleeds or nose and sinus problems. Patient reports on arm pain on exertion. No shortness of breath while lying down. No history of heart murmur. Patient reports no cough, no wheezing or coughing up blood. Patient reports no abdominal pain, no vomiting. Normal appetite. No diarrhea and not vomiting blood. No nausea and no constipation. Patient reports no incontinence. No difficulty urinating. No hematuria. No increased frequency. Patient reports no muscle aches. No weakness, no arthralgias, no back pain. No swelling of the extremities. Patient reports no abnormal mole, no jaundice, no rashes. Reports no loss of consciousness. No weakness and no numbness. No seizures, dizziness, or headaches. The patient reports no depression, no sleep disturbance, feeling safe in a relationship and no alcohol abuse. Patient reports on fatigue. Reports no runny nose or sinus pressure. No itching, no hives, and no frequent sneezing. PHYSICAL EXAMINATION: GENERAL: Pleasant gentleman, in no acute distress, appears younger than stated age. VITAL SIGNS: Blood pressure 151/59, pulse 60 and regular. CONSULT REPORT [id number] ROBERTO ZAVALA Red MAHMOODROBBI: Normocephalic, atraumatic. NECK: No bruits noted. HEART: Regular. A II/ systolic ejection murmur. LUNGS: Few basilar crackles with prolonged expiratory phase. Expiratory wheezes. ABDOMEN: Soft, nontender. EXTREMITIES: Pulses 2+. No edema. IMPRESSION: Cardiomyopathy. Most recent EF looks to be 30% to 35% previously. Already on ARB and beta blockade. We will add aldosterone inhibition as well as loop diuretic. Further recommendations based on clinical course. TRANSINT:[id number] Voice Confirmation ID: [id number] DOCUMENT ID: [id number] TONYA BLAKE MD at 1303 CC: [id number] DICTATION DATE: 01/01/19 1016 SAND POLISHER: 01/01/19 1050 DIS IN 01/03/19 [facility] [address] [place] [id number]
== END 2019-01-03 15:05 | disposition home or self-care (01) | DRG 291 ==
LOC: D.ER 23:57 → D.M2 01-01 02:34
PROVIDERS: Family Medicine; ADMIT Internal Medicine Nephrology; ATTEND Internal Medicine Nephrology
DX: I11.0 Hypertensive heart disease with heart failure (principal); I50.21 Acute systolic (congestive) heart failure; N17.9 Acute kidney failure, unspecified; I50.23 Acute on chronic systolic (congestive) heart failure; I42.9 Cardiomyopathy, unspecified; D64.9 Anemia, unspecified; E78.5 Hyperlipidemia, unspecified; I25.10 Atherosclerotic heart disease of native coronary artery without angina pectoris; Z95.0 Presence of cardiac pacemaker; I48.0 Paroxysmal atrial fibrillation; E03.9 Hypothyroidism, unspecified; Z86.73 Personal history of transient ischemic attack (TIA), and cerebral infarction without residual deficits; N52.9 Male erectile dysfunction, unspecified

== ENCOUNTER 2019-02-03 14:02 | Emergency (ER) | payer MEDICARE, OTHER ==
[~2019-02-03] VITALS: Ht 185.4 cm; Wt 88.2 kg
[~2019-02-03 14:02] MED LIST changes: +ALDACTONE50 MG PO; +Aldactone PO; +BUMETANIDE0.5 MG PO; +Bumex PO; +NORVASC5 MG PO; +ZITHROMAX250 MG PO
[2019-02-03 14:31] VITALS: Ht 185.4 cm; Wt 88.2 kg
[2019-02-03] MEDS ORDERED: SINEQUAN25 MG PO (16:14)
[2019-02-03] MEDS ORDERED: TESSALON PERLE100 MG PO (16:16)
[2019-02-03 17:41] VITALS: BP 156/72
== END 2019-02-03 17:55 | disposition home or self-care (01) ==
LOC: D.ER 14:02
DX: K64.5 Perianal venous thrombosis (principal)

== ENCOUNTER 2019-03-25 12:46 | Emergency (ER) | payer MEDICARE, OTHER ==
[~2019-03-25] VITALS: Ht 185.4 cm; Wt 90.5 kg
[~2019-03-25 12:46] MED LIST changes: +TESSALON PERLE100 MG PO
[2019-03-25 12:57] VITALS: BP 157/64; Ht 185.4 cm; Wt 90.5 kg
[2019-03-25] MEDS ORDERED: HYDROCODON-ACE1 EAC7 PO (14:36)
== END 2019-03-25 14:50 | disposition home or self-care (01) ==
LOC: D.ER 12:46
DX: S49.91XA Unspecified injury of right shoulder and upper arm, initial encounter (principal); W10.9XXA Fall (on) (from) unspecified stairs and steps, initial encounter; Y93.9 Activity, unspecified; Y92.9 Unspecified place or not applicable; Z86.73 Personal history of transient ischemic attack (TIA), and cerebral infarction without residual deficits; E07.9 Disorder of thyroid, unspecified; Z95.1 Presence of aortocoronary bypass graft; I10 Essential (primary) hypertension

== ENCOUNTER 2019-06-20 13:37 | Emergency (ER) | payer MEDICARE, OTHER ==
[~2019-06-20] VITALS: Ht 185.4 cm; Wt 87.3 kg
[~2019-06-20 13:37] MED LIST changes: +ACETAMINOPHEN500 M1 PO; +CYCLOBENZAPRINE10 MG PO; +HYDROCODON-ACE1 EAC7 PO
[2019-06-20 13:44] VITALS: Ht 185.4 cm; Wt 87.3 kg
[2019-06-20] MEDS ORDERED: HYDROCODON-ACE1 EAC7 PO (13:47)
[2019-06-20] MEDS ORDERED: MOBIC7.5 MG PO (15:46)
[2019-06-20] MEDS ORDERED: LIORESAL 10 MG10 MG PO (15:49)
[2019-06-20 16:14] VITALS: BP 164/63
== END 2019-06-20 16:18 | disposition home or self-care (01) ==
LOC: D.ER 13:37
DX: M79.662 Pain in left lower leg (principal); I10 Essential (primary) hypertension; E07.9 Disorder of thyroid, unspecified; Z95.1 Presence of aortocoronary bypass graft; Z86.73 Personal history of transient ischemic attack (TIA), and cerebral infarction without residual deficits

== ENCOUNTER 2019-07-13 11:07 | Emergency (ER) | payer OTHER ==
[~2019-07-13] VITALS: Ht 185.4 cm; Wt 84.5 kg
[~2019-07-13 11:07] MED LIST changes: +LIORESAL 10 MG10 MG PO; +MOBIC7.5 MG PO
[2019-07-13] MEDS ORDERED: LASIX40 MG PO (11:16)
[2019-07-13] MEDS ORDERED: K-TAB10 MEQ PO (11:17)
[2019-07-13 13:48] VITALS: BP 128/60
[2019-07-13 15:10] VITALS: Ht 185.4 cm; Wt 84.5 kg
== END 2019-07-13 13:48 | disposition home or self-care (01) ==
LOC: D.ER 11:07
DX: M79.661 Pain in right lower leg (principal); I10 Essential (primary) hypertension; Z86.73 Personal history of transient ischemic attack (TIA), and cerebral infarction without residual deficits; Z95.1 Presence of aortocoronary bypass graft

== ENCOUNTER 2019-08-16 09:44 | Emergency (ER) | payer OTHER ==
[~2019-08-16] VITALS: Ht 185.4 cm; Wt 86.4 kg
[~2019-08-16 09:44] MED LIST changes: +K-TAB10 MEQ PO; +LASIX40 MG PO
[2019-08-16 09:54] VITALS: Ht 185.4 cm; Wt 86.4 kg
[2019-08-16] MEDS ORDERED: VISTARIL25 MG PO (10:15)
[2019-08-16 10:21] VITALS: BP 124/69
== END 2019-08-16 10:22 | disposition home or self-care (01) ==
LOC: D.ER 09:44
DX: G47.00 Insomnia, unspecified (principal); F41.9 Anxiety disorder, unspecified; Z86.73 Personal history of transient ischemic attack (TIA), and cerebral infarction without residual deficits; E07.9 Disorder of thyroid, unspecified; I10 Essential (primary) hypertension

== ENCOUNTER 2019-09-23 15:18 | Emergency (ER) | payer OTHER ==
[~2019-09-23] VITALS: Ht 185.4 cm; Wt 86.4 kg
[~2019-09-23 15:18] MED LIST changes: +VISTARIL25 MG PO
[2019-09-23 15:34] VITALS: Ht 185.4 cm; Wt 86.4 kg
[2019-09-23 19:10] VITALS: BP 146/83
== END 2019-09-23 19:10 | disposition home or self-care (01) ==
LOC: D.ER 15:18
DX: R53.1 Weakness (principal); R53.83 Other fatigue; Z86.73 Personal history of transient ischemic attack (TIA), and cerebral infarction without residual deficits; E07.9 Disorder of thyroid, unspecified; I10 Essential (primary) hypertension; Z95.0 Presence of cardiac pacemaker; R60.0 Localized edema

== ENCOUNTER 2019-09-26 21:51 | Emergency (ER) | payer OTHER ==
[~2019-09-26] VITALS: Ht 185.4 cm; Wt 86.4 kg
[2019-09-26 22:07] VITALS: Ht 185.4 cm; Wt 86.4 kg
[2019-09-26] MEDS ORDERED: FLOMAX0.4 MG PO (23:15)
[2019-09-26 23:55] VITALS: BP 143/76
== END 2019-09-26 23:55 | disposition home or self-care (01) ==
LOC: D.ER 21:51
DX: N40.1 Benign prostatic hyperplasia with lower urinary tract symptoms (principal); R33.8 Other retention of urine; E03.9 Hypothyroidism, unspecified; I10 Essential (primary) hypertension; Z86.73 Personal history of transient ischemic attack (TIA), and cerebral infarction without residual deficits; Z95.0 Presence of cardiac pacemaker

== ENCOUNTER 2019-10-08 08:43 | Emergency (ER) | payer OTHER ==
[~2019-10-08] VITALS: Ht 185.4 cm; Wt 86.4 kg
[~2019-10-08 08:43] MED LIST changes: +FLOMAX0.4 MG PO
[2019-10-08 08:50] VITALS: Ht 185.4 cm; Wt 86.4 kg
[2019-10-08] MEDS ORDERED: PROSCAR5 MG PO (08:56)
[2019-10-08 09:26] LABS: BILIRUBIN NEGATIVE (NEGATIVE); GLUCOSE NEGATIVE (NEGATIVE); KETONE NEGATIVE (NEGATIVE); NITRITE NEGATIVE (NEGATIVE); UROBILINOGEN NORMAL (NORMAL)
[2019-10-08 09:39] LABS: CARBON DIOXIDE 31.1 mmol/L (21.0-32.0); CREATININE - SERUM 1.6 mg/dL (0.6-1.3); POTASSIUM - SERUM 4.1 mmol/L (3.5-5.1)
[2019-10-08] MEDS ORDERED: COZAAR50 MG PO (09:48)
[2019-10-08 09:56] LABS: ALBUMIN 3.5 g/dL (3.4-5.0); BILIRUBIN - TOTAL 1.01 mg/dL (0.2-1.3); PROTEIN - SERUM 7.6 g/dL (6.4-8.2)
[2019-10-08 10:08] LABS: BASOPHILS 0.2 % (0-2); EOSINOPHILS 1.4 % (0-7); HEMATOCRIT 37.9 % (42.0-54.0); HEMOGLOBIN 11.5 g/dL (13.5-17.5); IMMATURE GRANULOCYTES 0.2 % (0-5); LYMPHOCYTES 15.3 % (15-50); MCH 29.6 pg (26.0-34.0); MCHC 30.3 g/dL (31.0-37.0); MCV 97.4 fL (80.0-100.0); MEAN PLATELET VOLUME 10.8 fL (7.4-10.4); NEUTROPHILS 72.9 % (40-80); PLATELET COUNT 240 10x3/uL (130-400); RBC 3.89 10x6/uL (4.20-6.10); RDW 15.7 % (11.5-14.5); WBC 5.7 10x3/uL (4.8-10.8)
[2019-10-08 10:26] VITALS: BP 109/63
== END 2019-10-08 10:26 | disposition home or self-care (01) ==
LOC: D.ER 08:43
PROVIDERS: Emergency Medicine
DX: N40.1 Benign prostatic hyperplasia with lower urinary tract symptoms (principal); R39.16 Straining to void; Z86.73 Personal history of transient ischemic attack (TIA), and cerebral infarction without residual deficits; E07.9 Disorder of thyroid, unspecified; I10 Essential (primary) hypertension; Z95.0 Presence of cardiac pacemaker

== ENCOUNTER 2019-11-02 16:57 | Emergency (ER) | payer OTHER ==
[~2019-11-02] VITALS: Ht 185.4 cm; Wt 86.4 kg
[~2019-11-02 16:57] MED LIST changes: +COZAAR50 MG PO; +PROSCAR5 MG PO
[2019-11-02 17:07] VITALS: Ht 185.4 cm; Wt 86.4 kg
[2019-11-02 18:55] VITALS: BP 114/64
== END 2019-11-02 18:56 | disposition home or self-care (01) ==
LOC: D.ER 16:57
DX: I95.9 Hypotension, unspecified (principal); E07.9 Disorder of thyroid, unspecified; Z86.73 Personal history of transient ischemic attack (TIA), and cerebral infarction without residual deficits; I10 Essential (primary) hypertension

== ENCOUNTER → 2019-11-28 13:19 | Outpatient (CLI) | payer MEDICARE, OTHER ==
[2019-11-02 17:07] VITALS: BMI 25.1
== END | disposition home or self-care (01) ==
LOC: D.LAB 13:19
PROVIDERS: ATTEND Family Medicine
DX: U07.1 COVID-19 (principal)

== ENCOUNTER → 2019-12-12 13:42 | Outpatient (CLI) | payer MEDICARE, OTHER ==
[2019-11-02 17:07] VITALS: BMI 25.1
== END | disposition home or self-care (01) ==
LOC: D.LAB 13:42
PROVIDERS: ATTEND Family Medicine
DX: U07.1 COVID-19 (principal)

== ENCOUNTER → 2019-12-14 14:25 | Outpatient (CLI) | payer OTHER ==
[2019-11-02 17:07] VITALS: BMI 25.1
== END | disposition home or self-care (01) ==
LOC: D.RT 12-01 15:00
PROVIDERS: ATTEND Family Medicine
DX: J44.9 Chronic obstructive pulmonary disease, unspecified (principal)

== ENCOUNTER 2019-12-15 14:10 | Emergency (ER) | payer MEDICARE ==
[~2019-12-15] VITALS: Ht 185.4 cm; Wt 81.8 kg
[2019-12-15 14:14] VITALS: Ht 185.4 cm; Wt 81.8 kg
[2019-12-15 15:46] VITALS: BP 138/66
== END 2019-12-15 15:47 | disposition home or self-care (01) ==
LOC: D.ER 14:10
DX: S09.90XA Unspecified injury of head, initial encounter (principal); Z79.01 Long term (current) use of anticoagulants; W18.30XA Fall on same level, unspecified, initial encounter; Y93.9 Activity, unspecified; Y92.9 Unspecified place or not applicable; E07.9 Disorder of thyroid, unspecified; Z86.73 Personal history of transient ischemic attack (TIA), and cerebral infarction without residual deficits; I10 Essential (primary) hypertension; R51 Headache

== ENCOUNTER 2020-08-11 13:52 | Emergency (ER) | payer MEDICARE ==
[~2020-08-11] VITALS: Ht 185.4 cm; Wt 88.2 kg
[2020-08-11 14:06] VITALS: BP 112/50; Ht 185.4 cm; Wt 88.2 kg
[2020-08-11] MEDS ORDERED: AUGMENTIN 875-11 TAB PO ×2 (14:24→15:11)
[2020-08-11] MEDS ORDERED: HYDROCODON-ACE1 EAC7 PO (14:56)
== END 2020-08-11 15:47 | disposition home or self-care (01) ==
LOC: D.ER 13:52
DX: S91.311A Laceration without foreign body, right foot, initial encounter (principal); S82.491A Other fracture of shaft of right fibula, initial encounter for closed fracture; W01.10XA Fall on same level from slipping, tripping and stumbling with subsequent striking against unspecified object, initial encounter; Y93.9 Activity, unspecified; Y92.9 Unspecified place or not applicable; I10 Essential (primary) hypertension; Z86.73 Personal history of transient ischemic attack (TIA), and cerebral infarction without residual deficits